=== PATIENT | female | born 1985 | race Caucasian/White ===

== ENCOUNTER 2018-06-08 22:23 | Emergency (ER) | payer SELFPAY ==
[~2018-06-08] VITALS: Ht 152.4 cm; Wt 61.2 kg
[2018-06-08] MEDS ORDERED: ANAPROX DS550 MG PO (22:45)
== END 2018-06-08 23:00 | disposition home or self-care (01) ==
LOC: ED 22:23
DX: K08.89 Other specified disorders of teeth and supporting structures (principal); F17.200 Nicotine dependence, unspecified, uncomplicated; Z88.8 Allergy status to other drugs, medicaments and biological substances